=== PATIENT | male | born 1990 | race Caucasian/White ===

== ENCOUNTER 2019-08-28 11:27 | Emergency (ER) | payer OTHER ==
[~2019-08-28] VITALS: Ht 177.8 cm; Wt 99.8 kg
[2019-08-28 11:39] VITALS: BP 134/82
== END 2019-08-28 12:07 | disposition home or self-care (01) ==
LOC: ER 11:35
DX: Z77.21 Contact with and (suspected) exposure to potentially hazardous body fluids (principal)

== ENCOUNTER 2019-08-30 08:49 | Emergency (ER) | payer OTHER ==
[~2019-08-30] VITALS: Ht 175.3 cm; Wt 79.4 kg
[2019-08-30 09:23] VITALS: BP 134/75
--- NOTE | 2019-08-30 10:11 | NUR ---
PT. VERBALIZED UNDERSTANDING OF AFTERCARE INSTRUCTIONS.Patient discharged to home in stable condition. Written and verbal after care instructions given. Patient verbalizes understanding of instruction. PT instructed to follow up with employee health
== END 2019-08-30 10:11 | disposition home or self-care (01) ==
LOC: ER 08:53
DX: Z20.828 Contact with and (suspected) exposure to other viral communicable diseases (principal)

== ENCOUNTER 2019-09-09 12:57 | Emergency (ER) | payer OTHER ==
[~2019-09-09] VITALS: Ht 177.8 cm; Wt 95.3 kg
[2019-09-09 13:19] VITALS: BP 137/83
--- NOTE | 2019-09-09 14:00 | NUR ---
COVID SWAB OBTAINED AND SENT TO LAB.
--- NOTE | 2019-09-09 14:14 | NUR ---
Patient discharged to home in stable condition. Written and verbal after care instructions given. Patient verbalizes understanding of instruction.
== END 2019-09-09 14:14 | disposition home or self-care (01) ==
LOC: ER 13:00
DX: Z20.828 Contact with and (suspected) exposure to other viral communicable diseases (principal)